=== PATIENT | male | born 1980 | race Caucasian/White ===

== ENCOUNTER 2017-01-26 13:06 | Emergency (ER) | payer MEDICAID ==
[~2017-01-26] VITALS: Ht 170.2 cm; Wt 68.0 kg
[~2017-01-26 13:06] MED LIST: AC325T; LNS30CCR; RSP2T; TR1O15; [UNRECOGNIZED DRUG - OTHER]
[2017-01-26] MEDS ORDERED: DEXAMETHASONE 10 MG/ML (DECADRON) 1 ML VIAL ONE (13:11)
[2017-01-26] MEDS ORDERED: DEXAMETHASONE PF 10 MG/ML (DECADRON) VIAL IM ONE (13:15)
[2017-01-26] MEDS ORDERED: diphenhydrAMINE 50 MG/ML INJ (BENADRYL) IM ONE (13:15)
--- NOTE | 2017-01-26 13:18 | ED EENT ---
History of Present Illness General Stated Complaint: EYES/FACIAL SWELLING POSS ALLERGIC REACTION Source: patient Exam Limitations: no limitations History of Present Illness Time seen by provider: 13:16 Initial Comments Patient is from a [place] [facility] and is brought to the emergency room by his caregivers with reports of swelling around both eyes and runny nose. This began about 1 hour prior to arrival. He takes Claritin daily for allergies. Timing/Duration: abrupt Severity: moderate Location: eye (R), eye (L), nose Associated Symptoms: denies symptoms Allergies and Home Medications Allergies Coded Allergies: Penicillins (Verified Allergy, Unknown, 07/12/08) Home Medications Acetaminophen 325 Mg Tablet, (Reported) Lansoprazole 30 Mg Capsule.dr, (Reported) Risperidone 2 Mg Tab, (Reported) Triamcinolone Acet 15 Gm Tube, (Reported) [Enztropine] , (Reported) Review of Systems Constitutional: see HPI Eyes: No Symptoms Reported Ears: No Symptoms Reported Nose: no symptoms reported Mouth: no symptoms reported Throat: no symptoms reported Respiratory: no symptoms reported Cardiovascular: no symptoms reported Musculoskeletal: no symptoms reported Skin: no symptoms reported Past Hqfguce-Qsrbmi-Kuacyv Hx Reproductive System Hx Reproductive Disorders: No Physical Exam Vital Signs Vital Sign - Last 12Hours 01/26/17 13:27 Temp 98.0 Pulse 60 Resp 20 B/P (MAP) 127/74 Pulse Ox 97 O2 Delivery Room Air General Appearance: WD/WN, no apparent distress Eyes: bilateral eye PERRL, bilateral eye EOMI, bilateral eye other (there is swelling of each of the inferior eyelids right greater than left. The bit of chemosis to the conjunctiva to the right) Ears: bilateral ear auricle normal, bilateral ear canal normal, bilateral ear TM normal Nose: other (rhinorrhea) Mouth/Throat: normal mouth inspection, pharynx normal, other (no tongue or uvular swelling. No stridor) Neck: non-tender, full range of motion Cardiovascular: regular rate, rhythm, no murmur Respiratory: normal breath sounds, no respiratory distress, no accessory muscle use, No stridor, No wheezing Gastrointestinal: normal bowel sounds, non tender, soft Neurologic/Psychiatric: alert, normal mood/affect, oriented x 3 Skin: normal color, warm/dry Progress/Results/Core Measures Results/Orders My Orders Orders - AMBREEN TRISTAN APRN Dexamethasone Pf Injection (Decadron Pf (01/26/17 13:15) Diphenhydramine Injection (Benadryl Inje (01/26/17 13:15) Dexamethasone Injection (Decadron Inject (01/26/17 13:11) Medications Given in ED Current Medications Medications Dose Ordered Sig/Moshe Route Start Time Stop Time Status Last Admin Dose Admin Dexamethasone Sodium Phosphate 10 mg STK-MED ONCE .ROUTE 01/26/17 13:11 01/26/17 13:20 DC 01/26/17 13:23 10 MG Diphenhydramine HCl 25 mg ONCE ONCE IM 01/26/17 13:15 01/26/17 13:17 DC 01/26/17 13:23 25 MG Vital Signs/I&O Vital Sign - Last 12Hours 01/26/17 13:27 Temp 98.0 Pulse 60 Resp 20 B/P (MAP) 127/74 Pulse Ox 97 O2 Delivery Room Air Departure Impression Impression: Primary Impression: Allergic response Disposition: 01 HOME, SELF-CARE Condition: Stable Departure-Patient Inst. Decision time for Depature: 13:41 Referrals: [facility] (PCP/Family) Primary Care Physician Patient Instructions: NO INSTRUCTIONS GIVEN Add. Discharge Instructions: 1. Continue to use Benadryl one tablet every 4 hours in addition to his Claritin for the rest of today and tomorrow 2. Steroids as he was given here will continue to work for the next 2-3 days 3. Return to ER for any worsening. AMBREEN TRISTAN APRN Jan 26, 2017 13:18
[2017-01-26 14:09] VITALS: BP 127/74
--- OUTSIDE RECORDS SUMMARY | 2017-01-26 14:16 | XMS REPORT ---
Author Author LEESA SPARROW [employer] Address Unknown Phone Unavailable Care Team Providers Care Patient Financial Coordinator Name Role Phone LEESA SPARROW CP Unavailable Allergies, Adverse Reactions, Alerts Substance Reaction Event Type N.K.D.A. Info Not Available Non Drug Allergy Problems Problem Type Condition Code Onset Dates Condition Status Assessment Active autistic disorder F84.0 Active Assessment Moderate mental retardation F71 Active Problem Active autistic disorder F84.0 Active Problem Moderate mental retardation F71 Active Problem Anxiety state F41.1 Active Problem Allergic rhinitis due to pollen J30.1 Active Assessment Anxiety state F41.1 Active Problem Dyskinesia of esophagus K22.4 Active Problem Allergic rhinitis, unspecified allergic rhinitis type J30.9 Active Medications Medication Code System Code Instructions Start Date End Date Status Dosage Omeprazole [facility] 51610529900 20 MG take 1 capsule (20 mg) by oral route once daily before a meal Citalopram Hydrobromide [facility] [address]-96 20 MG Orally Once a day 1 tablet Risperidone [facility] [address]-59 2 MG Orally 3 times a day 1 tablet Loratadine [facility] [address]-54 10 MG Orally Once a day October 20, 2013 1 tablet Lamictal [facility] [address]-18 100 mg Jun 29, 2014 1 Tablet by Oral route 1 time per day for seizure d/o Trihexyphenidyl HCl [facility] 83888660945 2 MG TAKE 1 TABLET ORALLY THREE TIMES A DAY Clonazepam [facility] [address]-39 1 MG Orally 4 times a day qAM, 12N, 5PM and HS November 20, 2014 1 tablet Lansoprazole [facility] [address]-75 30 mg October 20, 2013 1 capsule by Oral route 1 time per day Phenytoin Sodium Extended [facility] [address]-37 100 MG Orally Once a day qhs 2 capsule Procedures Procedure Coding System Code Date Office Visit, Est Pt., Level 3 CPT-4 06604 Jun 21, 2015 Vital Signs Date/Time: Jun 21, 2015 Cardiac Monitoring Heart Rate 80 bpm Weight 147.7 lbs Height 67 in BMI 23.13 Index Blood Pressure Diastolic 54 mmHg Blood Pressure Systolic 98 mmHg Results No Known Results Summary Purpose eClinicalWorks Submission
--- OUTSIDE RECORDS SUMMARY | 2017-01-26 14:16 | XMS REPORT ---
Author LESEA Gutierrez e[employer] Address Unknown Phone Unavailable Care Team Providers Care Can Vacuum Tester Name Role Phone LEESA SPARROW CP Unavailable Allergies, Adverse Reactions, Alerts Substance Reaction Event Type Penicillin V Potassium Info Not Available Drug Allergy Problems Problem Type Condition Code Onset Dates Condition Status Assessment Moderate mental retardation F71 Active Assessment Anxiety state F41.1 Active Assessment Active autistic disorder F84.0 Active Problem Anxiety state F41.1 Active Problem Active autistic disorder F84.0 Active Problem Seizures R56.9 Active Problem Allergic rhinitis, unspecified allergic rhinitis type J30.9 Active Problem Allergic rhinitis due to pollen J30.1 Active Problem Moderate mental retardation F71 Active Problem Dyskinesia of esophagus K22.4 Active Medications Medication Code System Code Instructions Start Date End Date Status Dosage Lansoprazole [facility] [address]-90 30 mg October 20, 2013 1 capsule by Oral route 1 time per day Lamictal [facility] [address]-69 100 MG Orally Once a day Jun 29, 2014 1 tablet Trihexyphenidyl HCl [facility] 52804074897 2 MG TAKE 1 TABLET ORALLY THREE TIMES A DAY Citalopram Hydrobromide [facility] [address]-12 20 mg Orally Once a day 1 tablet Risperidone [facility] [address]-94 2 MG Orally 3 times a day 1 tablet Omeprazole [facility] 94298077874 20 MG take 1 capsule (20 mg) by oral route once daily before a meal Loratadine [facility] 04213450260 10 MG Orally Once a day 1 tablet Phenytoin Sodium Extended [facility] [address]-33 100 MG Orally Once a day 2 capsules at bedtime Clonazepam [facility] [address]-29 1 MG Orally 4 times a day qAM, 12N, 5PM and HS November 20, 2014 1 tablet Procedures Procedure Coding System Code Date Office Visit, Est Pt., Level 3 CPT-4 76769 Dec 25, 2015 Vital Signs Date/Time: Dec 25, 2015 Cardiac Monitoring Heart Rate 68 bpm Weight 147.0 lbs Height 67 in BMI 23.02 Index Blood Pressure Diastolic 66 mmHg Blood Pressure Systolic 102 mmHg Results No Known Results Summary Purpose eClinicalWorks Submission
--- OUTSIDE RECORDS SUMMARY | 2017-01-26 14:16 | XMS REPORT ---
Author Author KEIKO ORTIZ [facility] Address [address] [place] [address] Care Team Providers Care District Agent Name Role Phone KEIKO ORTIZ Unavailable PROBLEMS Type Condition ICD9-CM Code [id number] Code Onset Dates Condition Status SNOMED Code Problem Dyskinesia of esophagus K22.4 Active 16776471 Problem Seizures R56.9 Active 75311110 Problem Active autistic disorder F84.0 Active 892172793 Problem Allergic rhinitis, unspecified allergic rhinitis type J30.9 Active 48427771 Problem Allergic rhinitis due to pollen J30.1 Active 66923573 Problem Moderate mental retardation F71 Active 48820178 Problem Anxiety state F41.1 Active 735158812 ALLERGIES Substance Reaction Event Type Date Status Penicillin V Potassium Unknown Drug Allergy May, Active SOCIAL HISTORY No smoking Hx information available PLAN OF CARE Activity Details Follow Up prn Reason: VITAL SIGNS Height 67 in 2016-05-20 Weight 141.3 lbs 2016-05-20 Temperature 98.0 degrees Fahrenheit 2016-05-20 Heart Rate 72 bpm 2016-05-20 Respiratory Rate 28 2016-05-20 BMI 22.13 kg/m2 2016-05-20 Blood pressure systolic 117 mmHg 2016-05-20 Blood pressure diastolic 90 mmHg 2016-05-20 MEDICATIONS Medication Instructions Dosage Frequency Start Date End Date Duration Status Lamictal 100 MG Orally Once a day 1 tablet 24h Jun, Active Phenytoin Sodium Extended 100 MG Orally Once a day 2 capsules at bedtime 24h 31 days Active Lansoprazole 30 mg 1 capsule by Oral route 1 time per day Oct, Active Loratadine 10 MG Orally Once a day 1 tablet 24h 93 Active Omeprazole 20 MG take 1 capsule (20 mg) by oral route once daily before a meal 31 Active Citalopram Hydrobromide 20 MG Orally Once a day 1 tablet 24h 31 Active Risperidone 2 MG Orally 3 times a day 1 tablet 8h 31 Active Clonazepam 1 MG Orally 4 times a day qAM, 12N, 5PM and HS 1 tablet 13 Nov Active Trihexyphenidyl HCl 2 MG TAKE 1 TABLET ORALLY THREE TIMES A DAY 30 Active RESULTS No Results PROCEDURES Procedure Date Ordered Related Diagnosis Body Site Preventive Care Est Pt. Age 18-39 May 20, 2016 IMMUNIZATIONS No Known Immunizations
--- OUTSIDE RECORDS SUMMARY | 2017-01-26 14:16 | XMS REPORT ---
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
--- OUTSIDE RECORDS SUMMARY | 2017-01-26 14:16 | XMS REPORT ---
Author Author LEESA SPARROW [employer] Address Unknown Phone Unavailable Care Team Providers Care De Alcholizer Name Role Phone LEESA SPARROW CP Unavailable Allergies No Known Allergies Problems Problem Type Condition Code Onset Dates Condition Status Problem Anxiety state F41.1 Active Problem Active autistic disorder F84.0 Active Problem Seizures R56.9 Active Problem Allergic rhinitis, unspecified allergic rhinitis type J30.9 Active Problem Allergic rhinitis due to pollen J30.1 Active Problem Moderate mental retardation F71 Active Problem Dyskinesia of esophagus K22.4 Active Medications No Known Medications Results No Known Results Summary Purpose eClinicalWorks Submission
--- OUTSIDE RECORDS SUMMARY | 2017-01-26 14:16 | XMS REPORT ---
Author Author LEESA SPARROW [employer] Address Unknown Phone Unavailable Care Team Providers Care Environmental Engineering Manager Name Role Phone LEESA SPARROW CP Unavailable [...] esophagus 530.5 Active Medications No Known Medications Results No Known Results Summary Purpose eClinicalWorks Submission
--- OUTSIDE RECORDS SUMMARY | 2017-01-26 14:16 | XMS REPORT ---
Author LEESA Gutierrez [facility] eClinicalWorks Address Unknown Phone Unavailable Care Team Providers Care Tools Developer Name Role Phone LEESA SPARROW CP Unavailable [...] Instructions Start Date End Date Status Dosage Clonazepam [facility] [address]-95 1 MG Orally 4 times a day qAM, 12N, 5PM and HS November 20, 2014 1 tablet Results No Known Results Summary Purpose eClinicalWorks Submission
--- OUTSIDE RECORDS SUMMARY | 2017-01-26 14:17 | XMS REPORT ---
Author Author KEIKO ORTIZ Organization [employer] Address Unknown Phone Unavailable Care Team Providers Care Hotel Superintendent Name Role Phone KEIKO ORTIZ CP Unavailable [...]
--- OUTSIDE RECORDS SUMMARY | 2017-01-26 14:17 | XMS REPORT ---
Author Author LEESA SPARROW [employer] Address Unknown Phone Unavailable Care Team Providers Care Lithographic Plate Maker Name Role Phone LEESA SPARROW CP Unavailable Allergies, Adverse Reactions, Alerts Substance Reaction Event Type N.K.D.A. Info Not Available Non Drug Allergy Problems Problem Type Condition Code Onset Dates Condition Status Assessment Active autistic disorder F84.0 Active Problem Allergic rhinitis due to pollen 477.0 Active Assessment Anxiety state F41.1 Active Assessment Moderate mental retardation F71 Active Problem Active autistic disorder F84.0 Active Problem Moderate mental retardation F71 Active Problem Anxiety state F41.1 Active Problem Unspecified disturbance of conduct 312.9 Active Problem Dyskinesia of esophagus 530.5 Active Problem Impacted cerumen 380.4 Active Problem Corns and callosities 700 Active Medications Medication Code System Code Instructions Start Date End Date Status Dosage Trihexyphenidyl HCl [facility] 58497379566 2 MG TAKE 1 TABLET ORALLY THREE TIMES A DAY Lamictal [facility] [address]-14 100 mg Jun 29, 2014 1 Tablet by Oral route 1 time per day for seizure d/o Risperidone [facility] 66457705791 2 MG 1 Tablet by Oral route 3 times per day Citalopram Hydrobromide [facility] 74002187245 20 MG 1 tablet by Oral route 1 time per day Loratadine [facility] [address]-48 10 MG Orally Once a day October 20, 2013 1 tablet Omeprazole [facility] 55724252067 20 MG take 1 capsule (20 mg) by oral route once daily before a meal Clonazepam [facility] [address]-92 1 MG Orally 4 times a day qAM, 12N, 5PM and HS November 20, 2014 1 tablet Lansoprazole [facility] [address]-37 30 mg October 20, 2013 1 capsule by Oral route 1 time per day Phenytoin Sodium Extended [facility] [address]-70 100 MG Orally Once a day qhs 2 capsule Procedures Procedure Coding System Code Date Office Visit, Est Pt., Level 3 CPT-4 83802 Mar 20, 2015 Vital Signs Date/Time: Mar 20, 2015 Cardiac Monitoring Heart Rate 78 bpm Weight 147.3 lbs Height 67 in BMI 23.07 Index Blood Pressure Diastolic 74 mmHg Blood Pressure Systolic 112 mmHg Results No Known Results Summary Purpose eClinicalWorks Submission
--- OUTSIDE RECORDS SUMMARY | 2017-01-26 14:17 | XMS REPORT ---
Author Author KEIKO ORTIZ Organization [employer] Address Unknown Phone Unavailable Care Team Providers Care Repairer Handtools Name Role Phone KEIKO ORTIZ CP Unavailable [...] Instructions Start Date End Date Status Dosage Phenytoin Sodium Extended [facility] [address]-54 100 MG Orally Once a day 2 capsules at bedtime Results No Known Results Summary Purpose eClinicalWorks Submission
--- OUTSIDE RECORDS SUMMARY | 2017-01-26 14:17 | XMS REPORT ---
Author Author LEESA SPARROW [employer] Address Unknown Phone Unavailable Care Team Providers Care Concrete Pump Operator Helper Name Role Phone LEESA SPARROW CP Unavailable [...] Problem Dyskinesia of esophagus 530.5 Active Medications Medication Code System Code Instructions Start Date End Date Status Dosage Clonazepam [facility] [address]-85 1 MG Orally 4 times a day qAM, 12N, 5PM and HS November 20, 2014 1 tablet Results No Known Results Summary Purpose eClinicalWorks Submission
--- OUTSIDE RECORDS SUMMARY | 2017-01-26 14:17 | XMS REPORT ---
Author Author LEESA SPARROW [employer] Address Unknown Phone Unavailable Care Team Providers Care Microbiology Supervisor Name Role Phone LEESA SPARROW CP Unavailable [...] Start Date End Date Status Dosage Clonazepam [facility] [address]-45 1 MG Orally 4 times a day qAM, 12N, 5PM and HS November 20, 2014 1 tablet Results No Known Results Summary Purpose eClinicalWorks Submission
== END 2017-01-26 14:08 | disposition home or self-care (01) ==
LOC: EDUNIT# 13:06 → ER 13:09
DX: T78.40XA Allergy, unspecified, initial encounter (principal)
CPT/HCPCS: 99284

== ENCOUNTER → 2020-07-26 | Outpatient (CLI) | payer MEDICAID | LOC: CARD 09:21 | PROVIDERS: ATTEND Family Medicine | DX: R00.1 Bradycardia, unspecified (principal) | CPT/HCPCS: 93005 ==